=== PATIENT | female | born 1985 | race Two or more races ===

== ENCOUNTER 2024-10-06 07:50 | Emergency (ER) | payer MEDICAID, SELFPAY ==
[2024-10-06 07:57] VITALS: BP 135/101; PULSE 128; RESP 20; TEMP 36.9; O2SAT 99; BMI 25.6
--- NOTE | 2024-10-06 08:09 | PC.NURSE ---
Pt was BIBA for a reported seizure. Patient was in the restroom. She had just awaken. Mom went to check on her a witness patient seizing for approximately 2-3 minutes. Pt is med compliant just hasnt take medication today. States she take 3 meds for seizures, Keppra,, Lamictal, and something else but cant remember right now. Pt is GCS 15 A&O x4 just slow to respond.
[2024-10-06 08:26] VITALS: PULSE 98
--- NOTE | 2024-10-06 08:26 | XR_ITS ---
Examination: AP chest single view Technique one AP portable semiupright chest single view Exam date and time: October 06, 2024 0841 hours INDICATIONS: Seizure with fall today. FINDINGS: No aspiration pneumonia No pneumothorax Normal heart size Clavicles ribs appear intact IMPRESSION: Negative for aspiration pneumonia No pneumothorax or pneumonia
--- NOTE | 2024-10-06 08:33 | XR_ITS ---
Examination: CT cervical spine without contrast 2-D sagittal reconstructions 2-D coronal reconstructions 3-D reconstructions. Exam date and time:October 06, 2024 1039 hours INDICATIONS: Seizure today, patient fell with injury to the neck, neck pain CTDI:vol (mGy) 8.41 DLP: (mGycm) 192 Technique: Multiple 2 mm axial sections of the cervical spine have been obtained. The coronal and sagittal reconstructions have been obtained. 3-D reconstructions have been obtained. Low dose protocols were performed. One or more of the following dose reduction techniques were used; automated exposure control, adjustment of the mA and/or KV according to patient size, use of iterative reconstruction technique. Findings: Axial sections demonstrate intact base of the skull. C1 exhibit satisfactory relationship to the odontoid. No acute cervical vertebral body fracture seen. Alignment posterior spinous processes satisfactory. Impression: No acute cervical fracture.
--- NOTE | 2024-10-06 08:33 | XR_ITS ---
Examination: CT brain head without contrast. 2-D sagittal coronal reconstructions Date and time of exam:October 06, 2024 1039 hours INDICATIONS: Seizure today, patient fell with injury to the head CTDI: vol (mGy):47.2 DLP: (mGycm):984 Technique: Multiple CT axial sections of the brain have been obtained, 5 mm slice thickness. Contrast has not been administered. 2-D sagittal, coronal reconstructions have been obtained Low dose protocols were performed. One or more of the following dose reduction techniques were used; automated exposure control, adjustment of the mA and/or KV according to patient size, use of iterative reconstruction technique. Findings: No significant ventricular enlargement. Intra-axial or extra-axial hemorrhage density is not seen. No mass effect or midline shift Basal cisterns are not remarkable. Fourth ventricle is midline. Cranial vault intact. Impression: Negative for acute hemorrhage, mass effect or midline shift Consider elective brain MRI follow-up, pre and postcontrast, seizure protocol
--- NOTE | 2024-10-06 08:40 | EDNOTE_ITS ---
ED Seizures RME/HPI General Chief Complaint: Seizure Stated Complaint: SEIZURE Time Seen by Provider: 10/06/24 08:12 Arrival date/time: 10/06/24 07:50 RME / HPI RME / HPI Narrative: A 39-year-old female patient with past medical history of hypertension, seizures since the age of 16, was brought by the ambulance after she had a seizure while she was at the restroom. As per paramedics the family reported that she had a grand mall seizure unwitnessed. Patient denied any fever, chills, cough, flulike symptoms, denied any vaginal discharge or urinary tract symptoms. Patient reported that she is taking her medication regularly however this morning she has not taken her meds. Patient reported that she is following up with a neurologist [facility] in which he monitor her symptoms and adjust medications regularly. Patient lives with her spiritual mom and her brother. Patient denied any drug use except for smoking marijuana socially. Related Data Home Medications ?Medication ?Instructions ?Recorded ?Confirmed lamotrigine 200 mg tablet 150 mg PO QDAY 05/18/20 10/06/24 levetiracetam 250 mg tablet 500 mg PO BID 05/18/20 10/06/24 cetirizine 10 mg tablet 10 mg PO QDAY 10/06/24 10/06/24 lisinopril 20 mg tablet 20 mg PO QDAY 10/06/24 10/06/24 oxybutynin chloride 5 mg tablet 5 mg PO QDAY 10/06/24 10/06/24 venlafaxine 75 mg tablet 75 mg PO QDAY 10/06/24 10/06/24 Previous Rx's ?Medication ?Instructions ?Recorded levetiracetam 1,000 mg tablet 1,000 mg PO BID #60 tabs 03/06/19 (Keppra) hydrocodone 5 mg-acetaminophen 325 1 tab PO BID PRN pain #10 tabs 04/01/21 mg tablet ibuprofen 800 mg tablet 800 mg PO TID PRN pain #30 tabs 04/01/21 ibuprofen 800 mg tablet 800 mg PO TID PRN pain #30 tabs 07/05/21 loperamide 2 mg capsule (Imodium 2 mg PO Q6H PRN loose stool #14 07/05/21 A-D) caps benzonatate 100 mg capsule 100 mg PO BID PRN cough #20 caps 01/10/23 meloxicam 7.5 mg tablet 7.5 mg PO QDAY #10 tabs 01/10/23 Allergies Allergy/AdvReac Type Severity Reaction Status Date / Time aspirin Allergy Verified 01/10/23 21:20 ED Exam Narrative Physical exam: Full body exposure was done for examination of any trauma GEN: AOx3, able to speak full sentences HEENT: Bruises on the left side of the head, no cervical tenderness, PERRLA, oral mucosa moist, neck supple CVS: RRR, S1-S2 present, no murmurs appreciated RESP: CTAB GI: soft,non distended, non tender, NBS MSK: able to move all 4 limbs, no lower extremity edema SKIN: warm and dry, multiple tattoos TOP STOP ATTACHER: CN II-XII and Sensation grossly intact. Course Quality Measures none Orders Category Date Time Status Aspiration precautions ONCE Care 10/06/24 08:28 Active Bedside Blood Glucose NOW Care 10/06/24 08:28 Active Certified Travel Counselor Q4H START 00 Care 10/06/24 08:26 Active Insert IV NOW Care 10/06/24 08:28 Active NPO NOW Care 10/06/24 09:16 Active Seizure precautions NOW Care 10/06/24 08:26 Active Diet NPO Except Supplements Diet 10/06/24 09:[address] cervical spine wo con Stat Exams 10/06/24 08:[address] head/brain wo con Stat Exams 10/06/24 08:33 Completed CXRP [XR chest 1V portable] Stat Exams 10/06/24 08:26 Completed CBC Stat Lab 10/06/24 08:56 Completed CMP [Comprehensive Metabolic Panel] Stat Lab 10/06/24 08:56 Completed Creatine Kinase Stat Lab 10/06/24 08:56 Completed Drug Screen,Urine Stat Lab 10/06/24 08:33 Completed HCG Qualitative,Urine Stat Lab 10/06/24 08:33 Completed Lactate (Lactic Acid) Stat Lab 10/06/24 08:56 Completed Lactic Acid, 3 HR Stat Lab 10/06/24 12:33 Completed Acetaminophen Tab [Tylenol Tab] Med 10/06/24 09:15 Discontinued 650 mg PO X1 ONE Ondansetron Inj [Zofran Inj] Med 10/06/24 09:15 Discontinued 4 mg IV X1 ONE levETIRAcetam INJ [Keppra Inj] Med 10/06/24 08:25 Discontinued 1,000 mg IVP X1 ONE Vital Signs Vital signs: Vital Signs Temperature 98.4 F 10/06/24 07:57 Respiratory Rate 20 10/06/24 07:57 Blood Pressure 135/101 H 10/06/24 07:57 Pulse Oximetry (%) 99 10/06/24 07:57 Seizure MDM Narrative MDM Narrative:: On evaluation patient was found to be conscious oriented x 3, vital stable, Chest x-ray was normal, brain CT was normal, cervical CT was normal, CBC was within normal limits, lactic acid was found to be 2.1 however on repeat it was 1.1 most likely secondary to the seizures, drug screening was only positive for marijuana. Patient was given Keppra and she did not develop any seizure afterward. Patient was treated for breakthrough seizure and she is ready to be discharged and follow-up with her neurologist to adjust her dose. Will instruct the patient to not drive cars or operate on any heavy equipments. Patient data External records reviewed:: [facility] previous records Clinical information provided by:: patient and EMS Social determinants that could affect healthcare access:: substance use Patient has the following chronic illnesses:: Seizure disorders How is presenting disease/condition affected by chronic disease/condition?: caused by Evaluation data The following diagnostics were reviewed and interpreted by me:: lab results, radiology exam(s) and EKG tracing(s) Lab and/or radiology exams considered but not ordered:: None Interpretation Summary: Breakthrough seizures Medications / Prescriptions Medications or Prescriptions considered but not ordered:: None Medication administrations:: Medication Administration History Discontinued Medications Acetaminophen (Acetaminophen 325 Mg Tablet) 650 mg PO X1 ONE Stop: 10/06/24 09:16 Last Admin: 10/06/24 09:42 Dose: 650 mg Documented By: Levetiracetam (Levetiracetam Inj 100 Mg/Ml Vial 5ml) 1,000 mg IVP X1 ONE Stop: 10/06/24 08:26 Last Admin: 10/06/24 08:54 Dose: 1,000 mg Documented By: Ondansetron HCl (Ondansetron Inj 2 Mg/Ml Inj 2 Ml) 4 mg IV X1 ONE; Protocol Stop: 10/06/24 09:16 Last Admin: 10/06/24 09:42 Dose: 4 mg Documented By: As above Consultations Consultation(s) initiated? (list below): No Diagnosis Seizure Differential Diagnosis: generalized seizure Most likely diagnosis given after review of the tests above:: Breakthrough seizure Admission Indicated Admission indicated?: not indicated Admission Request Was there a request for admission?: No Disposition Plan Disposition Plan: Discharge Discharge Attestation Discharge Attestation: The patient and all family members were given an opportunity to ask questions and understood the discharge instructions. Discharge instructions specifically effects, indications for sooner follow up or return to the emergency department, and the expected course of current diagnosis. Patient condition: Stable Discharge Plan Plan Patient Disposition: HOME (Self Care) Patient condition on transfer: Stable Prescriptions/Referrals Prescriptions/Med Rec: No Action ibuprofen 800 mg tablet 800 mg PO TID PRN (Reason: pain) Qty: 30 0RF hydrocodone-acetaminophen 5-325 mg tablet 1 tab PO BID MDD 10 PRN (Reason: pain) Qty: 10 0RF loperamide [Imodium A-D] 2 mg capsule 2 mg PO Q6H PRN (Reason: loose stool) Qty: 14 0RF ibuprofen 800 mg tablet 800 mg PO TID PRN (Reason: pain) Qty: 30 0RF levetiracetam [Keppra] 1,000 mg tablet 1,000 mg PO BID Qty: 60 0RF lamotrigine 200 mg tablet 150 mg PO QDAY levetiracetam 250 mg tablet 500 mg PO BID benzonatate 100 mg capsule 100 mg PO BID PRN (Reason: cough) Qty: 20 0RF meloxicam 7.5 mg tablet 7.5 mg PO QDAY Qty: 10 0RF venlafaxine 75 mg Tablet 75 mg PO QDAY cetirizine 10 mg Tablet 10 mg PO QDAY lisinopril 20 mg Tablet 20 mg PO QDAY oxybutynin chloride 5 mg Tablet 5 mg PO QDAY Referrals: Paulino Paz MD [Primary Care Provider] - In 1 week Problem List Clinical Impression: Seizure disorder Patient/Caregiver Discharge Instructions Print Language: Latvian Stand Alone Forms: [employer] Award Info., Patient Portal Info Letter
[2024-10-06] MEDS: levETIRAcetam INJ 100 MG/ML VIAL 5ML 1000 MG IVP (08:54)
[2024-10-06 09:02] LABS: Lactate (Lactic Acid) 2.1 mMol/L (0.4-2.0)
[2024-10-06 09:02] LABS: HCG Qualitative,Urine Negative
[2024-10-06 09:03] LABS: Basophils # (Auto) 0.1 Thou/mm3 (0.0-0.2); Basophils % (Auto) 1 % (0-2.5); Eosinophils # (Auto) 0.6 Thou/mm3 (0.0-0.5); Eosinophils % (Auto) 6 % (0-10); Hematocrit 38.8 % (36.0-46.0); Hemoglobin 13.7 g/dL (12.0-16.0); Immature Granulocytes % (Auto) 0 % (0-0); Immature Granulocytes Auto 0.03 Thou/mm3 (0.00-0.00); Lymphocytes # (Auto) 1.7 Thou/mm3 (1.0-4.8); Lymphocytes % (Auto) 17 % (10-50); Mean Corpuscular HGB Conc 35.3 g/dl (31.0-37.0); Mean Corpuscular Hemoglobin 30.5 pg (25.0-35.0); Mean Corpuscular Volume 86 fL (80-100); Monocytes # (Auto) 0.6 Thou/mm3 (0.0-0.8); Monocytes % (Auto) 6 % (0-12); Neutrophils # (Auto) 7.4 Thou/mm3 (1.8-7.7); Neutrophils % (Auto) 71 % (37-80); Nucleated Red Blood Cell % 0 /100 WBC (0); Platelet Count 289 Thou/mm3 (140-440); RDW Standard Deviation 40.2 fL (36.4-46.3); Red Blood Count 4.49 Miln/mm3 (4.00-5.20); White Blood Count 10.4 Thou/mm3 (3.6-11.0)
[2024-10-06 09:05] LABS: Amphetamine/Methamp Scrn,U Negative (Negative); Barbiturate Screen,Urine Negative (Negative); Benzodiazepines Screen,Urine Negative (Negative); Benzoylecgonine Screen, Ur Negative (Negative); Fentanyl Screen,Urine Negative (Negative); Opiate Screen,Urine Negative (Negative); THC Screen,Urine Positive (Negative)
[2024-10-06 09:28] LABS: Alanine Aminotransferase 13 U/L (10-49); Albumin, Serum 4.5 gm/dL (3.5-5.0); Albumin/Globulin Ratio 1.8 (1.2-2.2); Alkaline Phosphatase 88 U/L (46-116); Anion Gap 6 (7-16); Aspartate Amino Transferase 15 U/L (0-34); BUN/Creatinine Ratio 13 Ratio (12-20); Bilirubin,Total 0.5 mg/dL (0.3-1.2); Blood Urea Nitrogen 10 mg/dL (9-23); Calcium 9.6 mg/dL (8.3-10.6); Calcium (Corrected) 9.6 mg/dL (8.5-10.1); Carbon Dioxide 24.9 mMol/L (20.0-31.0); Chloride 105 mMol/L (98-107); Creatine Kinase 75 U/L (34-171); Creatinine (Component) 0.8 mg/dL (0.6-1.3); Estimated Creatinine Clearance 92.6 mL/min (>60); Globulin 2.5 gm/dL (2.3-3.5); Glucose 104 mg/dL (74-106); Osmolality,Calculated 270 (275-295); Potassium 4.2 mMol/L (3.4-5.1); Sodium 136 mMol/L (136-145); eGFR > 60 See Note
[2024-10-06] MEDS: ONDANSETRON INJ 2 MG/ML INJ 2 ML 4 MG IV (09:42)
[2024-10-06] MEDS: ACETAMINOPHEN 325 MG TABLET 650 MG PO (09:42)
[2024-10-06 12:00] LABS: Reflex Lactate? Y
[2024-10-06 12:46] LABS: Lactic Acid, 3 HR 1.1 mMol/L (0.4-2.0)
[2024-10-06 13:48] VITALS: BP 136/89; PULSE 83; RESP 14; TEMP 36.9; O2SAT 98
== END 2024-10-06 14:10 | disposition home or self-care (01) ==
PROVIDERS: Student in an Organized Health Care Education/Training Program; Emergency Provider Emergency Medicine; PCP Family Medicine
DX: R56.9 Unspecified convulsions (principal); S19.9XXA Unspecified injury of neck, initial encounter; S09.90XA Unspecified injury of head, initial encounter; W19.XXXA Unspecified fall, initial encounter
CPT/HCPCS: 36415; 70450; 71045; 72125; 80053; 80307; 81025; 82550; 83605; 85025; 96374; 96375; 99284; J1953; J2405; A9270

== ENCOUNTER 2025-07-13 10:19 | Emergency (ER) | payer MEDICAID, SELFPAY ==
[2025-07-13] VITALS (8 sets, daily range): BP systolic 112–155; BP diastolic 79–102; PULSE 91–131; RESP 15–24; TEMP 36.7–37.1; O2SAT 97–100; BMI 26.6
--- NOTE | 2025-07-13 10:39 | EKG_ITS ---
[facility] Test Date: 2025-07-13 Pat Name: SEAN FLYNN Department: Room: - Gender: Female Front End Mechanic: : 1985 Requested By: Lisy Christianson Order Number: [id number] Reading MD: Lisy Christianson Measurements Intervals [place] Rate: 88 P: 62 [place]: 180 QRS: 12 QRSD: 75 T: 56 QT: 352 QTc: 428 Interpretive Statements SINUS RHYTHM Compared to ECG 05/18/2020 07:29:26 No significant changes /store/S0/[id number].pdf
--- NOTE | 2025-07-13 10:55 | XR_ITS ---
Examination: CT brain head without contrast. 2-D sagittal coronal reconstructions Date and time of exam:July 13, 2025 1256 hours INDICATIONS: Seizure activity today COMPARISON: October 06, 2024 CTDI: vol (mGy):49.3 DLP: (mGycm):963 Technique: Multiple CT axial sections of the brain have been obtained, 5 mm slice thickness. Contrast has not been administered. 2-D sagittal, coronal reconstructions have been obtained Low dose protocols were performed. One or more of the following dose reduction techniques were used; automated exposure control, adjustment of the mA and/or KV according to patient size, use of iterative reconstruction technique. Findings: No significant ventricular enlargement. Intra-axial or extra-axial hemorrhage density is not seen. No mass effect or midline shift Basal cisterns are not remarkable. Fourth ventricle is midline. Cranial vault intact. Impression: Negative for acute hemorrhage, mass effect or midline shift As clinically warranted, consider brain MRI follow-up, seizure protocol
--- NOTE | 2025-07-13 11:04 | PD.EDSEIZ ---
ED Seizures RME/HPI General Chief Complaint: Seizure Stated Complaint: SEIZURE Time Seen by Provider: 07/13/25 10:46 Arrival date/time: 07/13/25 10:19 Limitations: no limitations RME / HPI RME / HPI Narrative: 39 year old female with a history of seizures, currently on Keppra and Lamictal, presents to the ED BIBA from home for evaluation following a seizure today. Per medics report, the roommate on scene stated the patient had a tonic-clonic seizure lasting approximately 4-5 minutes while lying on the couch. On their arrival, the patient was postictal and unable to provide further history. Prehospital BS 132. In the ED, patient states she has been experiencing daily seizures since the age of 16. She denies any recent illness, fever, chills, cough, or nasal congestion. Patient admits to methamphetamine use, with the last use occurring one week ago. Denies any other drug or alcohol use. Neurologist: Dr. Medina Related Data Home Medications ?Medication ?Instructions ?Recorded ?Confirmed lamotrigine 200 mg tablet 150 mg PO QDAY 05/18/20 10/06/24 levetiracetam 250 mg tablet 500 mg PO BID 05/18/20 10/06/24 cetirizine 10 mg tablet 10 mg PO QDAY 10/06/24 10/06/24 lisinopril 20 mg tablet 20 mg PO QDAY 10/06/24 10/06/24 oxybutynin chloride 5 mg tablet 5 mg PO QDAY 10/06/24 10/06/24 venlafaxine 75 mg tablet 75 mg PO QDAY 10/06/24 10/06/24 Previous Rx's ?Medication ?Instructions ?Recorded levetiracetam 1,000 mg tablet 1,000 mg PO BID #60 tabs 03/06/19 (Keppra) hydrocodone 5 mg-acetaminophen 325 1 tab PO BID PRN pain #10 tabs 04/01/21 mg tablet ibuprofen 800 mg tablet 800 mg PO TID PRN pain #30 tabs 04/01/21 ibuprofen 800 mg tablet 800 mg PO TID PRN pain #30 tabs 07/05/21 loperamide 2 mg capsule (Imodium 2 mg PO Q6H PRN loose stool #14 07/05/21 A-D) caps benzonatate 100 mg capsule 100 mg PO BID PRN cough #20 caps 01/10/23 meloxicam 7.5 mg tablet 7.5 mg PO QDAY #10 tabs 01/10/23 lacosamide 150 mg tablet (Vimpat) 150 mg PO BID #60 tabs 07/13/25 metoclopramide HCl 10 mg tablet 10 mg PO Q8H PRN nausea and 07/13/25 (Reglan) vomiting #20 tabs Allergies Allergy/AdvReac Type Severity Reaction Status Date / Time aspirin Allergy Verified 01/10/23 21:20 Review of Systems Review of Systems Systems Reviewed: All systems reviewed, normal except as documented Past Medical History Past Medical History NEUROLOGIC: Positive Neurological Disorders, Seizures and Epilepsy CARDIAC: Positive Cardiac Disorders and Hypertension PSYCHO/SOCIAL: Positive Depression Social History SMOKING STATUS: Never smoker SUBSTANCE USE: does not use ED Exam General Limitations: Present no limitations General appearance: Present alert and in no apparent distress Head Head exam: Present atraumatic and normocephalic Eye Eye exam: Present normal appearance, PERRL and EOMI ENT ENT exam: Present normal exam, normal oropharynx and mucous membranes moist Neck Neck exam: Present normal inspection, full ROM and trachea midline Chest Chest inspection: Present normal inspection and symmetric chest wall rise Respiratory Respiratory exam: Present normal lung sounds bilaterally Cardiovascular Cardiovascular exam: Present regular rate, normal rhythm and normal heart sounds Abdominal Exam Abdominal exam: Present soft; Absent distention, tenderness, guarding or rebound Extremities Exam Extremities exam: Present normal inspection and full ROM Back Exam Back exam: Present normal inspection and full ROM Neurological Exam Neurological exam: Present alert, oriented X3 and CN II-XII intact Psychiatric Psychiatric exam: Present normal affect and normal mood Skin Skin exam: Present warm, dry, intact and normal color Course Course Course Narrative: 1128: Notified by RN the patient had a seizure while in CT. Given Keppra. Will order IV Versed. Quality Measures none Orders Category Date Time Status 2 HR Behavioral Restraints Q15M Care 07/13/25 11:30 Completed EKG (ED ONLY) *Do not use* NOW Care 07/13/25 10:[address] head/brain wo con Stat Exams 07/13/25 10:55 Completed EKG (ED Only) Stat Exams 07/13/25 10:39 Draft CBC Stat Lab 07/13/25 10:30 Completed CMP [Comprehensive Metabolic Panel] Stat Lab 07/13/25 10:30 Completed CMP [Comprehensive Metabolic Panel] Stat Lab 07/13/25 17:23 Completed HCG,Qualitative Serum Stat Lab 07/13/25 10:30 Completed HIV Rapid (Source Pt) Stat Lab 07/13/25 10:30 Completed Hepatitis Acute Panel Stat Lab 07/13/25 10:30 Completed Lamotrigine* Stat Lab 07/13/25 10:30 Completed UA, C/S IF [Urinalysis, C/S if Indicated] Stat Lab 07/13/25 10:55 Completed ZZHep B Surface Ag Confrm* Stat Lab 07/13/25 10:30 Completed Acetaminophen Tab [Tylenol Tab] Med 07/13/25 14:10 Discontinued 650 mg PO X1 ONE LORazepam [Ativan] Med 07/13/25 16:54 Discontinued 0.5 mg PO X1 ONE Metoclopramide Inj [Reglan Inj] Med 07/13/25 18:24 Discontinued 10 mg IVP X1 ONE Metoprolol Tartrate [Lopressor] Med 07/13/25 18:24 Discontinued 25 mg PO X1 ONE Midazolam Inj [Versed Inj] Med 07/13/25 11:29 Discontinued 2 mg IVP X1 ONE Ondansetron Inj [Zofran Inj] Med 07/13/25 14:10 Discontinued 4 mg IVP X1 ONE Ondansetron Inj [Zofran Inj] Med 07/13/25 17:35 Discontinued 4 mg IVP X1 ONE Ringers Lactated 1000 ml [Lactated Ringers] 1,000 ml Med 07/13/25 14:10 Discontinued IV 999 mls/hr Sodium Chloride 0.9% 1000 ml [Ns] 1,000 ml Med 07/13/25 18:24 Discontinued IV 999 mls/hr lamoTRIgine [LaMICtal] Med 07/13/25 14:14 Discontinued 150 mg PO STAT STA lamoTRIgine [LaMICtal] Med 07/13/25 10:54 Discontinued 150 mg PO X1 ONE levETIRAcetam INJ [Keppra Inj] Med 07/13/25 10:54 Discontinued 1,500 mg IVP X1 ONE Vital Signs Vital signs: Vital Signs Temperature 98.0 F 07/13/25 10:26 Pulse Rate 110 H 07/13/25 10:26 Respiratory Rate 16 07/13/25 10:26 Blood Pressure 155/102 H 07/13/25 10:26 Pulse Oximetry (%) 100 07/13/25 10:26 Oxygen Delivery Method Room Air 07/13/25 10:26 Pulse ox is 100% on room air which is adequate. Seizure MDM Narrative MDM Narrative:: Patient is a 39-year-old female with medical history notable for epilepsy, daily breakthrough seizures, polysubstance abuse, present Emergency Department concerns for breakthrough seizure. Vital signs exam as listed. Patient presented GCS 15 however slow to respond, no focal neurodeficits. Patient states that she follows with Dr. Au and is pending surgery of her brain however does not know why. States that she takes her Keppra however did not take her Lamictal today. Seizure was witnessed by a bystander at home. Patient did not fall did not hit her head, patient is not on any blood thinners. No drugs today. Concern for breakthrough seizure, intracranial hemorrhage, metabolic disturbance among others. Ordered labs, CT brain as well as medication for symptom relief 11:30a patient had a breakthrough seizure while in CT, presented back to the emergency department postictal, seizure was witnessed, no head trauma, lasted a few seconds. Ordered medication for symptom relief 4:59p labs with leukocytosis 14 no left shift, no significant electrolyte abnormalities, patient does have an anion gap of 20, bicarb of 18.6 provided patient with fluids. Patient is not diabetic. Possibly secondary to lactic acidosis from patient's seizures. Provided patient with fluids. Will repeat labs. Urinalysis without evidence of infection. Ordered HIV and hepatitis testing given patient during her seizure episode spent in another patient space. Patient hepatitis surface antigen is reactive, confirmatory testing is pending. Hepatitis B core IgM is nonreactive, hepatitis C antibody is nonreactive, HIV negative. Hepatitis A negative. CT brain unremarkable. EKG performed July 13, 2025 at 1111 notable for sinus rhythm, heart rate 88, normal intervals, nonspecific T wave changes, not a cardiac alert. On evaluation patient hemodynamically stable, not in distress. 1800: Signed out to Dr. Otoole pending reassessment and final disposition. Patient data External records reviewed:: [facility] previous records (I reviewed ED visit on 10/06/2024 for seizure ) and EMS form Clinical information provided by:: patient and EMS Social determinants that could affect healthcare access:: substance use (methamphetamine ) Patient has the following chronic illnesses:: Seizures How is presenting disease/condition affected by chronic disease/condition?: exacerbated by Evaluation data The following diagnostics were reviewed and interpreted by me:: lab results and EKG tracing(s) Lab and/or radiology exams considered but not ordered:: None Interpretation Summary: Ordering Physician: Lisy Hamm MD Date of Service: 07/13/25 Procedure(s): CT head/brain wo con Accession Number(s): [id number] cc: Jimmie Birch MD; NO PRIMARY/FAMILY,PHYSICIAN; Lisy Hamm MD~ Examination: CT brain head without contrast. 2-D sagittal coronal reconstructions Date and time of exam:July 13, 2025 1256 hours INDICATIONS: Seizure activity today COMPARISON: October 06, 2024 CTDI: vol (mGy):49.3 DLP: (mGycm):963 Technique: Multiple CT axial sections of the brain have been obtained, 5 mm slice thickness. Contrast has not been administered. 2-D sagittal, coronal reconstructions have been obtained Low dose protocols were performed. One or more of the following dose reduction techniques were used; automated exposure control, adjustment of the mA and/or KV according to patient size, use of iterative reconstruction technique. Findings: No significant ventricular enlargement. Intra-axial or extra-axial hemorrhage density is not seen. No mass effect or midline shift Basal cisterns are not remarkable. Fourth ventricle is midline. Cranial vault intact. Impression: Negative for acute hemorrhage, mass effect or midline shift As clinically warranted, consider brain MRI follow-up, seizure protocol Dictated By: Jimmie Birch MD Signed By: <Electronically signed by Jimmie Birch MD in OV> 07/13/25 1336 Medications / Prescriptions Medications or Prescriptions considered but not ordered:: None Medication administrations:: Medication Administration History Discontinued Medications Acetaminophen (Acetaminophen 325 Mg Tablet) 650 mg PO X1 ONE Stop: 07/13/25 14:11 Last Admin: 07/13/25 14:16 Dose: 650 mg Documented By: ANTOINETTE Lactated Ringer's (Lactated Ringers) 1,000 mls @ 999 mls/hr IV .Q1H1M ONE Stop: 07/13/25 15:10 Last Infusion: 07/13/25 15:30 Dose: Infused Documented By: Admin: 07/13/25 14:19 Dose: 999 mls/hr Documented By: GM Sodium Chloride (Ns) 1,000 mls @ 999 mls/hr IV .Q1H1M ONE Stop: 07/13/25 19:24 Last Admin: 07/13/25 18:39 Dose: 999 mls/hr Documented By: GM Lamotrigine (Lamotrigine 100 Mg Tablet) 150 mg PO X1 ONE Stop: 07/13/25 10:55 Last Admin: 07/13/25 11:57 Dose: Not Given Documented By: GM Non-Admin Reason: Patient Refused Lamotrigine (Lamotrigine 100 Mg Tablet) 150 mg PO STAT STA Stop: 07/13/25 14:15 Last Admin: 07/13/25 14:17 Dose: 150 mg Documented By: GM Levetiracetam (Levetiracetam Inj 100 Mg/Ml Vial 5ml) 1,500 mg IVP X1 ONE Stop: 07/13/25 10:55 Last Admin: 07/13/25 11:31 Dose: 1,500 mg Documented By: GM Lorazepam (Lorazepam 0.5 Mg Tablet) 0.5 mg PO X1 ONE Stop: 07/13/25 16:55 Last Admin: 07/13/25 18:10 Dose: Not Given Documented By: GM Non-Admin Reason: Discontinued Metoclopramide HCl (Metoclopramide Inj 5 Mg/Ml Vial 2 Ml) 10 mg IVP X1 ONE; Protocol Stop: 07/13/25 18:25 Last Admin: 07/13/25 18:35 Dose: 10 mg Documented By: Metoprolol Tartrate (Metoprolol Tartrate 25 Mg Tablet) 25 mg PO X1 ONE Stop: 07/13/25 18:25 Last Admin: 07/13/25 18:36 Dose: 25 mg Documented By: GM Midazolam HCl (Midazolam Inj 1 Mg/Ml Vial 2 Ml) 2 mg IVP X1 ONE Stop: 07/13/25 11:30 Last Admin: 07/13/25 11:37 Dose: 2 mg Documented By: GM Ondansetron HCl (Ondansetron Inj 2 Mg/Ml Inj 2 Ml) 4 mg IVP X1 ONE; Protocol Stop: 07/13/25 14:11 Last Admin: 07/13/25 14:15 Dose: 4 mg Documented By: GM Ondansetron HCl (Ondansetron Inj 2 Mg/Ml Inj 2 Ml) 4 mg IVP X1 ONE; Protocol Stop: 07/13/25 17:36 Last Admin: 07/13/25 18:15 Dose: 4 mg Documented By: GM See above Consultations Consultation(s) initiated? (list below): No Diagnosis Seizure Differential Diagnosis: intractable seizure disorder, focal seizure, generalized seizure, epileptic seizure and status epilepticus Most likely diagnosis given after review of the tests above:: Seizure Admission Indicated Admission indicated?: not indicated Explain why admission is indicated or not indicated:: Signed out pending final disposition Admission Request Was there a request for admission?: No Disposition Plan Disposition Plan: other (specify) (Signed out to Dr. Otoole) Critical Care Time Critical Care Time Critical Care Time: Yes Total Critical Care Time (min.): 40 Attestation: The high probability of sudden, clinically significant deterioration in the patient's condition required the highest level of my preparedness to intervene urgently. The services I provided to this patient were to treat and/or prevent clinically significant deterioration. Services included the following: chart data review, reviewing nursing notes and/or old charts, documentation time, presales consultant collaboration regarding findings and treatment options, medication orders and management, direct patient care, vital sign assessments and ordering, interpreting and reviewing diagnostic studies and lab tests. Aggregate critical care time includes only time during which I was engaged in work directly related to the patient's care, as described above, whether at bedside or elsewhere in the Emergency Department. It did not include time spent performing other reported procedures or the services of residents, students, nurses or physician assistants. Discharge Plan Plan Patient Disposition: HOME (Self Care) Prescriptions/Referrals Prescriptions/Med Rec: New metoclopramide HCl [Reglan] 10 mg tablet 10 mg PO Q8H PRN (Reason: nausea and vomiting) Qty: 20 0RF lacosamide [Vimpat] 150 mg tablet 150 mg PO BID Qty: 60 1RF No Action ibuprofen 800 mg tablet 800 mg PO TID PRN (Reason: pain) Qty: 30 0RF hydrocodone-acetaminophen 5-325 mg tablet 1 tab PO BID MDD 10 PRN (Reason: pain) Qty: 10 0RF loperamide [Imodium A-D] 2 mg capsule 2 mg PO Q6H PRN (Reason: loose stool) Qty: 14 0RF ibuprofen 800 mg tablet 800 mg PO TID PRN (Reason: pain) Qty: 30 0RF levetiracetam [Keppra] 1,000 mg tablet 1,000 mg PO BID Qty: 60 0RF lamotrigine 200 mg tablet 150 mg PO QDAY levetiracetam 250 mg tablet 500 mg PO BID benzonatate 100 mg capsule 100 mg PO BID PRN (Reason: cough) Qty: 20 0RF meloxicam 7.5 mg tablet 7.5 mg PO QDAY Qty: 10 0RF venlafaxine 75 mg Tablet 75 mg PO QDAY cetirizine 10 mg Tablet 10 mg PO QDAY lisinopril 20 mg Tablet 20 mg PO QDAY oxybutynin chloride 5 mg Tablet 5 mg PO QDAY Referrals: No Primary/Family,Physician [Primary Care Provider] - In 1 week Problem List Clinical Impression: Recurrent seizures Patient/Caregiver Discharge Instructions Discharge Activity: activity as tolerated Education Materials: ED Seizure, Recurrent (Adult) Additional Instructions: Discharge Instructions from Dr. Otoole printed for you: 1. To prevent seizures, make sure you take all your seizure medications. And make sure you don't run out of them. 2. Your Vimpat was prescribed for you that you ran out few days ago. 3. Zofran and Reglan for nausea/vomiting. Eat regular nutritious meals. For good hydration, increase oral fluid and maintain clear urine. If dark or yellow, increase oral fluid. 4. See a private doctor on 07/14/2025 for recheck and further care. Ask to review all test results and official radiology reports, to make sure you receive all necessary follow-ups and monitoring, including positive test for hepatitis B. 5. Seek immediate medical care with another seizure or with any concerns. Print Language: Malay Stand Alone Forms: [facility] Award Info., Patient Portal Info Letter
[2025-07-13 11:07] LABS: Collection Type, Urine Clean Catch
[2025-07-13 11:12] LABS: Basophils # (Auto) 0.1 Thou/mm3 (0.0-0.2); Basophils % (Auto) 1 % (0-2.5); Eosinophils # (Auto) 0.4 Thou/mm3 (0.0-0.5); Eosinophils % (Auto) 3 % (0-10); Hematocrit 43.1 % (36.0-46.0); Hemoglobin 14.4 g/dL (12.0-16.0); Immature Granulocytes Auto 0.17 Thou/mm3 (0.00-0.00); Lymphocytes # (Auto) 3.5 Thou/mm3 (1.0-4.8); Lymphocytes % (Auto) 24 % (10-50); Mean Corpuscular HGB Conc 33.4 g/dl (31.0-37.0); Mean Corpuscular Hemoglobin 29.9 pg (25.0-35.0); Mean Corpuscular Volume 90 fL (80-100); Monocytes # (Auto) 0.7 Thou/mm3 (0.0-0.8); Monocytes % (Auto) 5 % (0-12); Neutrophils # (Auto) 9.8 Thou/mm3 (1.8-7.7); Neutrophils % (Auto) 67 % (37-80); Nucleated Red Blood Cell # 0.00 Thou/mm3 (0.00-0.00); Nucleated Red Blood Cell % 0 /100 WBC (0); Platelet Count 352 Thou/mm3 (140-440); RDW Standard Deviation 40.7 fL (36.4-46.3); Red Blood Count 4.81 Miln/mm3 (4.00-5.20); White Blood Count 14.6 Thou/mm3 (3.6-11.0)
[2025-07-13 11:18] LABS: Bilirubin,Urine Negative (Negative); Blood,Urine 1+ (Negative); Clarity,Urine Turbid (Clear/Hazy); Color,Urine Lt-Yellow (Lt Yel-Yel); Culture Indicated,Urine Not Indicated; Glucose, Urine Negative (Negative); Hyaline Casts,Urine < 1 /hpf (0-1); Ketones,Urine 1+ (Negative); Leukocyte Esterase,Urine Negative (Negative); Nitrite,Urine Negative (Negative); PH,Urine 5.5 (5.0-7.0); Protein,Urine 2+ (Neg - Trace); RBC,Urine 6 /hpf (0-3); Specific Gravity,Urine 1.020 (1.001-1.035); Squamous Epithelial Cell,Urine 17 /hpf (0-5); Urobilinogen,Urine Negative mg/dL (0.0-1.0); WBC,Urine 4 /hpf (0-5)
[2025-07-13 11:29] LABS: HCG,Qualitative Serum Negative
[2025-07-13] MEDS: levETIRAcetam INJ 100 MG/ML VIAL 5ML 1500 MG IVP (11:31)
[2025-07-13] MEDS: MIDAZOLAM INJ 1 MG/ML VIAL 2 ML 2 MG IVP (11:37)
--- NOTE | 2025-07-13 11:39 | PC.NURSE ---
@1125- CLAY MILLER GAVE THIS RN A CALL FOR POSSIBLE SEIZURE EP OF PT; PER CLAY MILLER, PT WAS OK DURING TRANSPORTATION TO THE [facility] BUT WHEN WE ARRIVED, PT STARTED FOAMING AT THE MOUTH; SHE TENSED UP AND STARTED SHAKING. IT LASTED ABOUT A MINUTE.: @1126- RN ARRIVED AT [facility] AND PT TAKEN BACK TO BED. DR. RUSH MADE AWARE. PT BECAME COMBATIVE AND STARTED TO SWING ARMS AT STAFF. PT CONTINUED TO SCREAM. WHEN TRIED TO ASK QUESTIONS, PT CONTINUED TO SCREAM. RN ATTEMPTING TO GET A SET OF VS, BUT UNABLE DUE TO EXCESSIVE PT MOVEMENT. ORDERS RECEIVED FROM DR. RUSH AT THIS TIME. @1130 - RESTRAINT ORDERS IN PLACE; PLACED IN RESTRAINS AT THIS TIME SOFT WRIST BILATERAL, SOFT ANKLE BILATERAL. PT CONTINUES TO SCREAM AND EXCESSIVELY MOVE AT THIS TIME.
[2025-07-13 11:44] LABS: Alanine Aminotransferase 8 U/L (10-49); Albumin, Serum 4.7 gm/dL (3.5-5.0); Albumin/Globulin Ratio 1.8 (1.2-2.2); Alkaline Phosphatase 84 U/L (46-116); Anion Gap 20 (7-16); Aspartate Amino Transferase 19 U/L (0-34); BUN/Creatinine Ratio 11 Ratio (12-20); Bilirubin,Total 0.3 mg/dL (0.3-1.2); Blood Urea Nitrogen 10 mg/dL (9-23); Calcium 9.8 mg/dL (8.3-10.6); Calcium (Corrected) 9.8 mg/dL (8.5-10.1); Carbon Dioxide 18.6 mMol/L (20.0-31.0); Chloride 104 mMol/L (98-107); Creatinine (Component) 0.9 mg/dL (0.6-1.3); Estimated Creatinine Clearance 83.8 mL/min (>60); Globulin 2.6 gm/dL (2.3-3.5); Glucose 158 mg/dL (74-106); Osmolality,Calculated 286 (275-295); Potassium 3.8 mMol/L (3.4-5.1); Sodium 143 mMol/L (136-145); Total Protein 7.3 gm/dL (5.7-8.2); eGFR > 60 See Note
--- NOTE | 2025-07-13 11:56 | PC.OT ---
YESSY CHARGE NURSE MADE AWARE AT THIS TIME THAT A SITTER IS NEEDED FOR THIS PT. JOSE ALBERTO VENDING MACHINE HOST/HOSTESS ASSIGNED SITTER FOR PT; JOSE ALBERTO AT BEDSIDE AT THIS TIME WITH PT.
[2025-07-13 12:35] LABS: HIV Rapid (Source Pt) Non-Reactive
[2025-07-13 12:59] LABS: Hepatitis A Antibody IgM Non Reactive (Non React); Hepatitis B Core Antibody IgM Non Reactive (Non React); Hepatitis C Antibody Non Reactive (Non React)
[2025-07-13 13:00] LABS: Hepatitis B Surface Antigen Reactive (Non React); ZZHep B Surface Ag Confrm* See Sep Rpt
[2025-07-13] MEDS: ONDANSETRON INJ 2 MG/ML INJ 2 ML 4 MG IVP ×2 (14:15→18:15)
[2025-07-13] MEDS: ACETAMINOPHEN 325 MG TABLET 650 MG PO (14:16)
[2025-07-13] MEDS: RINGERS LACTATED 1000 ML 1,000 ML 999 ML IV (14:19)
[2025-07-13 17:52] LABS: Alanine Aminotransferase 11 U/L (10-49); Albumin, Serum 4.3 gm/dL (3.5-5.0); Albumin/Globulin Ratio 2.0 (1.2-2.2); Alkaline Phosphatase 74 U/L (46-116); Anion Gap 12 (7-16); Aspartate Amino Transferase 41 U/L (0-34); BUN/Creatinine Ratio 13 Ratio (12-20); Bilirubin,Total 0.5 mg/dL (0.3-1.2); Blood Urea Nitrogen 10 mg/dL (9-23); Calcium 9.5 mg/dL (8.3-10.6); Calcium (Corrected) 9.5 mg/dL (8.5-10.1); Carbon Dioxide 26.2 mMol/L (20.0-31.0); Chloride 105 mMol/L (98-107); Creatinine (Component) 0.8 mg/dL (0.6-1.3); Estimated Creatinine Clearance 94.2 mL/min (>60); Globulin 2.2 gm/dL (2.3-3.5); Glucose 120 mg/dL (74-106); Osmolality,Calculated 284 (275-295); Potassium 4.0 mMol/L (3.4-5.1); Sodium 143 mMol/L (136-145); Total Protein 6.5 gm/dL (5.7-8.2); eGFR > 60 See Note
--- NOTE | 2025-07-13 18:25 | EDNOTE_ITS ---
Emergency Room Addendum <Estela Phillips - Last Filed: 07/13/25 19:51> Addendum Narrative: I took over the care from previous shift physician at 6 PM on 07/13/2025. See previous notes for complete H & P and ED course. I reviewed all diagnostic test results. My interpretation of the EKG is My interpretation of the chest x-ray is My review of the Head/CT report is Blood tests and urine tests Covid/Influenza: Diagnoses include: Recurrent seizures. Treatment here included IVF, Reglan 10 mg, Lopressor 25 mg. Based on my best medical judgment, made decision no further evaluation or treatment indicated at this time. Patient understands and agrees to the fariha coleman instructions customized and printed, see below. Discharge Instructions from Dr. Otoole printed for you: 1. To prevent seizures, make sure you take all your seizure medications. And make sure you don't run out of them. 2. Your Vimpat was prescribed for you that you ran out few days ago. 3. Zofran and Reglan for nausea/vomiting. Eat regular nutritious meals. For good hydration, increase oral fluid and maintain clear urine. If dark or yellow, increase oral fluid. 4. See a private doctor on 07/14/2025 for recheck and further care. Ask to review all test results and official radiology reports, to make sure you receive all necessary followups and monitoring, including positive test for hepatitis B. 5. Seek immediate medical care with another seizure or with any concerns. Nikhil Otoole MD <Nikhil Otoole MD - Last Filed: 07/13/25 23:30> Addendum Narrative: I took over the care from previous shift physician at 6 PM on 07/13/2025. See previous notes for complete H & P and ED course. I reviewed all diagnostic test results. Diagnoses include: Recurrent seizures. Treatment from a here included IVF, Reglan 10 mg IV, and oral Lopressor 25 mg. Significant improvement noted. Recommended outpatient management. Based on my best medical judgment, made decision no further evaluation or treatment indicated at this time. Patient understands and agrees to the discharge instructions customized and printed, see below. Discharge Instructions from Dr. Otoole printed for you: 1. To prevent seizures, make sure you take all your seizure medications. And make sure you don't run out of them. 2. Your Vimpat was prescribed for you that you ran out few days ago. 3. Zofran and Reglan for nausea/vomiting. Eat regular nutritious meals. For good hydration, increase oral fluid and maintain clear urine. If dark or yellow, increase oral fluid. 4. See a private doctor on 07/14/2025 for recheck and further care. Ask to review all test results and official radiology reports, to make sure you receive all necessary followups and monitoring, including positive test for hepatitis B. 5. Seek immediate medical care with another seizure or with any concerns. Nikhil Otoole MD
[2025-07-13] MEDS: METOCLOPRAMIDE INJ 5 MG/ML VIAL 2 ML 10 MG IVP (18:35)
[2025-07-13] MEDS: METOPROLOL TARTRATE 25 MG TABLET PO (18:36)
[2025-07-13] MEDS: SODIUM CHLORIDE 0.9% 1000 ML 1,000 ML 999 ML IV (18:39)
[2025-07-19 06:28] LABS: Lamotrigine* 1.9 mcg/mL (2.5-15.0)
== END 2025-07-13 20:29 | disposition home or self-care (01) ==
PROVIDERS: Emergency Medicine; Emergency Provider Emergency Medicine
DX: G40.909 Epilepsy, unspecified, not intractable, without status epilepticus (principal)
CPT/HCPCS: 36415; 70450; 80053; 80074; 80175; 81001; 84703; 85025; 87340; 93005; 96361; 96374; 96375; 96376; 99283; J1953; J2250; J2405; J2765; J7030; J7120; A9270